=== PATIENT | female | born 2005 | race Caucasian/White ===

== ENCOUNTER 2025-08-22 11:23 | Outpatient (REF) | payer BC, SELFPAY ==
--- NOTE | ~2025-08-22 | MR_ITS ---
EXAM: MRI LOWER EXTREMITY JOINT, KNEE, left TECHNIQUE: Multiplanar multisequence MR imaging performed through the left knee without contrast. INDICATION: EFFUSION AND INSTABILITY PRIOR: None FINDINGS: Menisci: Lateral Meniscus: Intact Medial Meniscus: Intact ACL/PCL: ACL is intact. PCL is intact. Extensor mechanism: There is no joint effusion. There is moderate edema like signal in the superior lateral fat pad of Hoffa. There is lateral patellar tilt. There is mild patellofemoral and congruent. The median ridge of patella is 2 mm lateral to the trochlear groove. The Insall-Salvati ratio measured 1.6 consistent with patella augusta. There is a shallow upper trochlear groove. MCL/LCL: MCL is intact. LCL complex is intact. Articular cartilage: Patellofemoral Compartment: There are no articular cartilage defects. Lateral Compartment: Articular cartilage is intact. Medial Compartment: Articular cartilage is intact. Bones/Marrow: Bone marrow signal is physiologic Soft tissues: There is no mass, fluid collection, muscle edema, or fatty infiltration. MR/MR knee LT wo con IMPRESSION: Suspected Patellar tendon - lateral femoral condyle friction syndrome. There is edema like signal in the superior lateral fat pad of Hoffa, lateral patellar tilt, mild patellofemoral incongruence, patella augusta, and a shallow upper trochlear groove. Electronically signed by: Geremias Wiley MD 08/22/2025 12:19 PM [facility]
== END 2025-08-22 11:24 | disposition home or self-care (01) ==
LOC: HO.MRI 11:23
PROVIDERS: Visit Provider Student in an Organized Health Care Education/Training Program
DX: M25.362 Other instability, left knee (principal); M25.462 Effusion, left knee
CPT/HCPCS: 73721

== ENCOUNTER → 2025-08-22 11:29 | Outpatient (BNV) | payer BC, SELFPAY | PROVIDERS: Visit Provider Radiology Diagnostic Radiology | DX: M25.462 Effusion, left knee (principal); M23.52 Chronic instability of knee, left knee | CPT/HCPCS: 73721 ==